=== PATIENT | female | born 1945 | race Caucasian/White ===

== ENCOUNTER 2021-11-28 08:15 | Emergency (ER) | payer OTHER ==
[2021-11-28 08:35] VITALS: BP 155/60; PULSE 82; TEMP 98.7; BMI 22.3
[2021-11-28] MEDS ORDERED: IBUPROFEN 400 MG TABLET (FP) PO ONE ×2 (09:05→09:09)
== END 2021-11-28 10:06 | disposition home or self-care (01) ==
LOC: FER 08:15
DX: M25.561 Pain in right knee (principal)
CPT/HCPCS: 73560-TC-RT-FY; 99283-25